=== PATIENT | male | born 1950 | race African-American/Black ===

== ENCOUNTER 2016-11-22 06:34 | Emergency (ER) | payer OTHER, MEDICAID ==
[~2016-11-22] VITALS: Ht 190.5 cm; Wt 140.6 kg
[2016-11-22] VITALS (7 sets, daily range): BP systolic 109–136; BP diastolic 56–76
[~2016-11-22 06:34] MED LIST: BISACODYL5 MG ORAL; CATAPRES0.1 MG ORAL; CEFEPIME-D1 GM/50 ML IVPB; COLACE100 MG ORAL; DUONEB 0.5-3(2.53 ML HHN; FUROSEMIDE40 MG/4 ML IV; HEPARIN SO5000 UNIT2 SUBQ; LASIX20 M1 ORAL; METHYLPREDNISOLONE SODIUM SUCCINATE IV; MIRALAX17 GM ORAL; MOM30 ML ORAL; MORPHINE SU2 MG/1 M1 IV; Morphine Sulfate 4mg/ml Inj ONE; NITROSTAT0.4 M1 SL; PROTONIX IV40 MG IV; TEMAZEPAM15 MG ORAL; TYLENOL325 MG ORAL; UNOBMED; VANCOMYCIN1 GM/2502 IVPB; ZOFRAN 4 MG4 MG/2 ML IV
--- NOTE | 2016-11-22 06:39 | Emergency Room Report ---
History of Present Illness General Source: Patient, EMS Present Illness HPI The patient presents with chest pain. It's across his chest. Radiates somewhat to his shoulders. It is sharp and somewhat pleuritic. He rates it at 8-9/10 at this time. Is given 3 nitroglycerin [facility] nursing facility staff. Also paramedics gave him aspirin and nitroglycerin. It didn't change his pain. He states that he's been having these pains frequently and evaluated and his doctors can't find out what the problem is. The patient suffers from chronic edema and is on a water pill. In addition to that he has a ulcer on his left toe. His tetanus is up-to-date. Denies any nausea vomiting diarrhea. He does have difficulty urinating because he has a large prostate. The patient denies cough, sore throat, fever. Last admitted 2 weeks ago at [facility]. He fell asleep in front of his heater and has blisters on his left hand. Apparently had transfer to [facility] for new LBBB in past - EKG read as pacemaker. Allergies: Coded Allergies: PEANUT (Verified Allergy, Unknown, rash, 04/29/14) Uncoded Allergies: peanut butter (Allergy, Unknown, Rash, 04/29/14) Patient History Past Medical History: see triage record Past Surgical History: CABG, pacemaker Social History Narrative Country [facility] Reviewed Nursing Documentation: PMH: Agreed, PSxH: Agreed Review of Systems All Other Systems: negative except mentioned in HPI Physical Exam Vital Signs Date Time Temp Pulse Resp B/P Pulse Ox O2 Delivery O2 Flow Rate FiO2 11/22/16 06:29 97.0 69 16 119/81 100 Room Air Sp02 EP Interpretation: reviewed, normal General Appearance: well appearing, no apparent distress, GCS 15 Head: normocephalic, atraumatic Eyes: bilateral eye EOMI, bilateral eye PERRL, bilateral eye normal inspection ENT: moist mucus membranes - thirsty Neck: supple Respiratory: chest non-tender, lungs clear, normal breath sounds, other - pacemaker Cardiovascular #1: other - venous disease LE, edema Cardiovascular #2: 2+ radial (R), 2+ dorsalis pedis (R), 2+ dorsalis pedis (L) Gastrointestinal: normal inspection, normal bowel sounds, non tender, no mass, non-distended Musculoskeletal: back normal, gait/station normal, normal range of motion Neurologic: alert, oriented x3, grossly normal Psychiatric: mood/affect normal Skin: other - ulcer L great toe, fung - blisters L hand = 2 Medical Decision Making Diagnostic Impression: Primary Impression: Chest pain Qualified Codes: R07.9 - Chest pain, unspecified Additional Impression: Edema Qualified Codes: R60.0 - Localized edema ER Course Patient presents with substernal chest pain. Will differential includes acute coronary syndrome, acute myocardial infarction, chest wall pain, pleurisy, pneumonia amongst others. Reevaluation history undertaken with EKG, chest x-ray , laboratory. The patient was given aspirin and nitrates in the field without improvement. Nitro paste will be continued here as well as a dose of morphine for pain. EKG shows some ST wave changes septally without stenting. X-ray reveals pacemaker cardiomegaly. Labs are significant for negative troponin. Mild renal insufficiency. Unable to access records from [facility]. The patient is improved here however needs to have observation as his risk factors are high and has an abnormal EKG. He was discussed with Dr. Hurtado. Patient request re-treatment for pain. Morphine repeated. Patient is stable for transfer ALS to [facility] Laboratory Tests Test 11/22/16 06:35 11/22/16 07:47 White Blood Count 6.7 K/UL (4.8-10.8) Red Blood Count 4.15 M/UL (4.70-6.10) L Hemoglobin 13.2 G/DL (14.2-18.0) L Hematocrit 38.7 % (42.0-52.0) L Mean Corpuscular Volume 93 FL (80-99) Mean Corpuscular Hemoglobin 31.8 PG (27.0-31.0) H Mean Corpuscular Hemoglobin Concent 34.2 G/DL (32.0-36.0) Red Cell Distribution Width 11.7 % (11.6-14.8) Platelet Count 135 K/UL (150-450) L Mean Platelet Volume 8.3 FL (6.5-10.1) Neutrophils (%) (Auto) 57.1 % (45.0-75.0) Lymphocytes (%) (Auto) 29.3 % (20.0-45.0) Monocytes (%) (Auto) 8.7 % (1.0-10.0) Eosinophils (%) (Auto) 3.4 % (0.0-3.0) H Basophils (%) (Auto) 1.5 % (0.0-2.0) Prothrombin Time 10.8 SEC (9.30-11.50) Prothrombin Time INR 1.1 (0.9-1.1) PTT 26 SEC (23-33) Sodium Level 140 mEQ/L (135-145) Potassium Level 4.4 mEQ/L (3.4-4.9) Chloride Level 102 mEQ/L (98-107) Carbon Dioxide Level 31 mEQ/L (20-30) H Anion Gap 7 (5-15) Blood Urea Nitrogen 15 mg/dL (7-23) Creatinine 1.4 mg/dL (0.7-1.2) H Estimate Glomerular Filtration Rate > 60 mL/min (>60) Glucose Level 105 mg/dL (74-106) Calcium Level 10.0 mg/dL (8.6-10.2) Total Bilirubin 0.2 mg/dL (0.0-1.2) Aspartate Amino Transferase (AST) 20 U/L (5-40) Alanine Aminotransferase (ALT) 17 U/L (3-41) Alkaline Phosphatase 81 U/L (40-129) Total Creatine Kinase 362 U/L (38-174) H Troponin I < 0.30 ng/mL (<=0.30) Pro-B-Type Natriuretic Peptide 289 pg/mL (0-125) H Total Protein 6.9 g/dL (6.6-8.7) Albumin 3.7 g/dL (3.5-5.2) Globulin 3.2 g/dL Albumin/Globulin Ratio 1.1 (1.0-2.7) Urine Color Pale yellow Urine Appearance Clear Urine pH 7 (4.5-8.0) Urine Specific [place] 1.005 (1.005-1.035) Urine Protein Negative (NEGATIVE) Urine Glucose (UA) Negative (NEGATIVE) Urine Ketones Negative (NEGATIVE) Urine Occult Blood Negative (NEGATIVE) Urine Nitrite Negative (NEGATIVE) Urine Bilirubin Negative (NEGATIVE) Urine Urobilinogen 4 MG/DL (0.0-1.0) H Urine Leukocyte Esterase Negative (NEGATIVE) Urine Opiates Screen Positive (NEGATIVE) H Urine Barbiturates Screen Negative (NEGATIVE) Phencyclidine (PCP) Screen Negative (NEGATIVE) Urine Amphetamines Screen Negative (NEGATIVE) Urine Benzodiazepines Screen Negative (NEGATIVE) Urine Cocaine Screen Negative (NEGATIVE) Urine Marijuana (THC) Screen Negative (NEGATIVE) EKG Diagnostic Results Rate: normal Rhythm: NSR ST Segments: other - St changes septally Rhythm Strip Diag. Results EP Interpretation: yes Rhythm: NSR, no PVC's, no ectopy Chest X-Ray Diagnostic Results EP Interpretation: Yes Findings: no consolidation, no effusion, no pneumothorax, other - cardimegally , pacer Number of Views: 1 Last Vital Signs Date Time Temp Pulse Resp B/P Pulse Ox O2 Delivery O2 Flow Rate FiO2 11/22/16 12:17 97.9 60 12 109/56 99 Room Air Status: improved Disposition: XFER SHT-TRM HOSP Condition: Serious - but stable for transfer Parvez Madera M.D. Nov 22, 2016 06:39
[2016-11-22] MEDS ORDERED: Morphine Sulfate 4mg/ml Inj IVP ONE ×3 (06:45→12:30)
[2016-11-22] MEDS ORDERED: Nitroglycerin 2% oint pkt TOPIC ONE (06:45)
[2016-11-22] MEDS ORDERED: GABAPENTIN300 MG ORAL (06:58)
[2016-11-22] MEDS ORDERED: TYLENOL EXTRA500 MG ORAL (06:58)
[2016-11-22] MEDS ORDERED: HYDROCHLOROTHIA25 MG ORAL (06:58)
[2016-11-22] MEDS ORDERED: FUROSEMIDE40 MG ORAL (06:58)
[2016-11-22] MEDS ORDERED: NEXIUM40 MG ORAL (06:58)
[2016-11-22] MEDS ORDERED: PLAVIX75 MG ORAL (06:58)
[2016-11-22] MEDS ORDERED: BACTRIM DS TAB1 EAC1 ORAL (06:58)
[2016-11-22] MEDS ORDERED: XARELTO20 MG ORAL (07:06)
[2016-11-22] MEDS ORDERED: HYDROCODON-ACE1 EA15 ORAL (07:06)
[2016-11-22] MEDS ORDERED: TAMSULOSIN HCL0.4 MG ORAL (07:06)
[2016-11-22] MEDS ORDERED: LOSARTAN POTAS100 MG ORAL (07:06)
[2016-11-22] MEDS ORDERED: LACTULOSE20 GM/301 ORAL (07:06)
[2016-11-22] MEDS ORDERED: METOPROLOL SUCC25 MG ORAL (07:06)
[2016-11-22] MEDS ORDERED: CEPHALEXIN500 MG ORAL (07:06)
[2016-11-22] MEDS ORDERED: VITAMIN D1000 UNI1 ORAL (07:06)
[2016-11-22] MEDS ORDERED: LISINOPRIL2.5 MG ORAL (07:06)
[2016-11-22] MEDS ORDERED: ISOSORBIDE MONO30 M1 PO (07:06)
[2016-11-22] MEDS ORDERED: IBUPROFEN400 MG ORAL (07:06)
[2016-11-22] MEDS ORDERED: NITROGLYCERIN0.4 MG SL (07:06)
[2016-11-22 07:08] LABS: INR 1.1 (0.9-1.1); PROTHROMBIN TIME 10.8 SEC (9.30-11.50)
[2016-11-22 07:09] LABS: BASOPHILS % (AUTO) 1.5 % (0.0-2.0); EOSINOPHILS % (AUTO) 3.4 % (0.0-3.0); LYMPHOCYTES % (AUTO) 29.3 % (20.0-45.0); MEAN CORPUSCULAR HEMOGLOBIN 31.8 PG (27.0-31.0); MEAN CORPUSCULAR HGB CONC 34.2 G/DL (32.0-36.0); MEAN CORPUSCULAR VOLUME 93 FL (80-99); MEAN PLATELET VOLUME 8.3 FL (6.5-10.1); MONOCYTES % (AUTO) 8.7 % (1.0-10.0); NEUTROPHILS % (AUTO) 57.1 % (45.0-75.0); PLATELET COUNT 135 K/UL (150-450); RED BLOOD COUNT 4.15 M/UL (4.70-6.10); RED CELL DISTRIBUTION WIDTH 11.7 % (11.6-14.8); WHITE BLOOD COUNT 6.7 K/UL (4.8-10.8)
[2016-11-22 07:12] LABS: ALANINE AMINOTRANSFERASE 17 U/L (3-41); ALBUMIN/GLOBULIN RATIO 1.1 (1.0-2.7); ANION GAP 7 (5-15); ASPARTATE AMINO TRANSFERASE 20 U/L (5-40); CARBON DIOXIDE 31 mEQ/L (20-30); CHLORIDE 102 mEQ/L (98-107); CREATININE 1.4 mg/dL (0.7-1.2); GLOMERULAR FILTRATION RATE > 60 mL/min (>60); HEMOLYSIS 7; POTASSIUM 4.4 mEQ/L (3.4-4.9); SODIUM 140 mEQ/L (135-145); TOTAL PROTEIN 6.9 g/dL (6.6-8.7)
[2016-11-22 07:13] LABS: TROPONIN I < 0.30 ng/mL (<=0.30)
[2016-11-22 08:12] LABS: APPEARANCE,URINE CLEAR; KETONES,URINE NEGATIVE (NEGATIVE); LEUKOCYTE ESTERASE ,URINE NEGATIVE (NEGATIVE); NITRITE,URINE NEGATIVE (NEGATIVE); PH,URINE 7 (4.5-8.0); PROTEIN,URINE NEGATIVE (NEGATIVE); UROBILINOGEN,URINE 4 MG/DL (0.0-1.0)
--- NOTE | 2016-11-23 08:59 | Diagnostic Imaging Report ---
Indication: CP Technique: XRAY CHEST 1 V Comparison:11/09/2015 Findings: Sternal wires and pacemaker are again identified. The cardiac mediastinal silhouette is unchanged. The heart is at the upper limits of normal. Lungs are clear. No pleural fluid. The bones are unchanged. Impression: Heart the upper limits of normal. Pacemaker. Evidence previous surgery. No acute abnormality.
--- NOTE | 2016-11-23 19:50 | Cardiology Report ---
APPROVED REPORT EKG Measurement Heart [id number] Sinus rhythm with 1st degree AV block Nonspecific T wave abnormality Abnormal ECG
== END 2016-11-22 12:17 | disposition short-term general hospital (02) ==
LOC: EDBD 06:34 → EMR 07:18
DX: R07.89 Other chest pain (principal); I44.7 Left bundle-branch block, unspecified; R60.0 Localized edema; I51.7 Cardiomegaly; Z95.0 Presence of cardiac pacemaker; Z95.1 Presence of aortocoronary bypass graft; L97.529 Non-pressure chronic ulcer of other part of left foot with unspecified severity; T23.202A Burn of second degree of left hand, unspecified site, initial encounter; X08.8XXA Exposure to other specified smoke, fire and flames, initial encounter; Y92.9 Unspecified place or not applicable; R94.31 Abnormal electrocardiogram [ECG] [EKG]
CPT/HCPCS: 36415; 71010; 80053; 80300; 81003; 82550; 83880; 84484; 85025; 85610; 85730; 93005; 96374; 96375; 99285; J2270

== ENCOUNTER 2016-11-28 05:37 | Inpatient (IN) | payer OTHER, MEDICAID ==
[~2016-11-28] VITALS: Ht 190.5 cm; Wt 138.3 kg
[2016-11-28] VITALS (10 sets, daily range): BP systolic 92–129; BP diastolic 45–72
[~2016-11-28 05:37] MED LIST changes: +BACTRIM DS TAB1 EAC1 ORAL; +CEPHALEXIN500 MG ORAL; +FUROSEMIDE40 MG ORAL; +GABAPENTIN300 MG ORAL; +HYDROCHLOROTHIA25 MG ORAL; +HYDROCODON-ACE1 EA15 ORAL; +IBUPROFEN400 MG ORAL; +ISOSORBIDE MONO30 M1 PO; +LACTULOSE20 GM/301 ORAL; +LISINOPRIL2.5 MG ORAL; +LOSARTAN POTAS100 MG ORAL; +METOPROLOL SUCC25 MG ORAL; -Morphine Sulfate 4mg/ml Inj ONE; +NEXIUM40 MG ORAL; +NITROGLYCERIN0.4 MG SL; +PLAVIX75 MG ORAL; +TAMSULOSIN HCL0.4 MG ORAL; +TYLENOL EXTRA500 MG ORAL; +VITAMIN D1000 UNI1 ORAL; +XARELTO20 MG ORAL
[2016-11-28] MEDS ORDERED: Morphine Sulfate 4mg/ml Inj IVP ONE ×3 (05:45→21:45)
[2016-11-28] MEDS ORDERED: Nitroglycerin 2% oint pkt TOPIC ONE (05:45)
[2016-11-28 06:22] LABS: INR 1.2 (0.9-1.1); PROTHROMBIN TIME 12.4 SEC (9.30-11.50)
[2016-11-28 06:24] LABS: ALANINE AMINOTRANSFERASE 25 U/L (3-41); ALBUMIN/GLOBULIN RATIO 1.2 (1.0-2.7); ANION GAP 14 (5-15); ASPARTATE AMINO TRANSFERASE 21 U/L (5-40); CALCIUM 10.1 mg/dL (8.6-10.2); CARBON DIOXIDE 26 mEQ/L (20-30); CHLORIDE 96 mEQ/L (98-107); CREATININE 1.6 mg/dL (0.7-1.2); HEMOLYSIS 6; POTASSIUM 4.4 mEQ/L (3.4-4.9); SODIUM 136 mEQ/L (135-145)
[2016-11-28 06:25] LABS: TROPONIN I < 0.30 ng/mL (<=0.30)
[2016-11-28 06:34] LABS: BASOPHILS % (AUTO) 1.5 % (0.0-2.0); EOSINOPHILS % (AUTO) 5.2 % (0.0-3.0); LYMPHOCYTES % (AUTO) 34.3 % (20.0-45.0); MEAN CORPUSCULAR HEMOGLOBIN 32.5 PG (27.0-31.0); MEAN CORPUSCULAR HGB CONC 34.2 G/DL (32.0-36.0); MEAN CORPUSCULAR VOLUME 95 FL (80-99); MEAN PLATELET VOLUME 8.9 FL (6.5-10.1); NEUTROPHILS % (AUTO) 51.1 % (45.0-75.0); PLATELET COUNT 157 K/UL (150-450); RED BLOOD COUNT 4.39 M/UL (4.70-6.10); RED CELL DISTRIBUTION WIDTH 12.2 % (11.6-14.8); WHITE BLOOD COUNT 6.8 K/UL (4.8-10.8)
--- NOTE | 2016-11-28 06:34 | Emergency Room Report ---
History of Present Illness General Chief Complaint: Chest Pain Source: Patient, EMS Present Illness HPI The patient presents with substernal chest pressure that woke him up from sleep. [facility] This didn' t help the pain. The patient states this feels like his heart pain. He also is on Xarelto for a recent blood clot. He denies any fevers or productive cough , hemoptysis. He status post coronary artery bypass graft surgery. The patient was admitted to the hospital a few weeks ago (not [facility]). He states no exercise treadmill or imaging studies were done for his heart. Our records show he was transferred. The patient denies any nausea vomiting diarrhea. Also denies dysuria or hematuria. There is no hemoptysis. There is no bleeding. He has venous disease in his legs. He states that blood clot in the back of his left thigh. He denies any localizing weakness. Pain is 10/10, pressure, radiates to shoulder and back, constant at this time, not pleuritic. Allergies: Coded Allergies: PEANUT (Verified Allergy, Unknown, rash, 04/29/14) Uncoded Allergies: PEANUT BUTTER (Allergy, Unknown, 11/28/16) peanut butter (Allergy, Unknown, Rash, 04/29/14) Patient History Past Medical History: see triage record Past Surgical History: CABG, pacemaker Social History: Reports: smoking - former Social History Narrative [facility] for strokes Reviewed Nursing Documentation: PMH: Agreed, PSxH: Agreed Nursing Documentation-PMH Hx Cardiac Problems: Yes - triple bypass 2010 Hx Hypertension: Yes Hx Pacemaker: Yes Hx Diabetes: Yes Hx Cancer: No Hx Neurological Problems: Yes Hx Cerebrovascular Accident: Yes - 4 strokes last CVA 08/2015 Review of Systems All Other Systems: negative except mentioned in HPI Physical Exam Vital Signs Date Time Temp Pulse Resp B/P Pulse Ox O2 Delivery O2 Flow Rate FiO2 11/28/16 05:29 97.0 86 12 125/50 100 Room Air Sp02 EP Interpretation: reviewed, normal General Appearance: well appearing, no apparent distress, GCS 15 Head: normocephalic Eyes: bilateral eye normal inspection ENT: moist mucus membranes Neck: supple Respiratory: lungs clear, normal breath sounds, other - pacemaker L Cardiovascular #1: regular rate, rhythm, edema Cardiovascular #2: 2+ radial (R) Gastrointestinal: normal inspection, normal bowel sounds, non tender, no mass, non-distended, overweight Musculoskeletal: back normal, gait/station normal, normal range of motion, no calf tenderness Neurologic: alert, oriented x3, motor strength/tone normal, DTRs symmetric, sensory intact Psychiatric: depressed affect Reflexes: 2+ knee (R), 2+ knee (L) Skin: normal inspection, warm/dry, other - venous disease Medical Decision Making Diagnostic Impression: Primary Impression: ACS (acute coronary syndrome) Additional Impression: CHF (congestive heart failure) Qualified Codes: I50.43 - Acute on chronic combined systolic (congestive) and diastolic (congestive) heart failure ER Course The patient presents with substernal chest pressure. He's had a complex history with cardiovascular disease in the past. In addition he is on Lashon for blood clot in his leg. Differential includes acute myocardial infarction, acute coronary syndrome, I am embolus, congestive heart failure amongst others. Nitrates didn't seem to help the patient. He cannot take aspirin because he is on Lashon. Emergent evaluation is undertaken with EKG, labs chest x-ray. The patient will be treated with nitrates on his chest and also IV morphine. The patient is somewhat improved. Lasix given for his congestive heart failure. Initial labs are negative troponin. Patient is somewhat improved but needs observation for acute coronary syndrome and congestive heart failure. Admit tele Dr. Quiñones. Laboratory Tests Test 11/28/16 05:45 11/28/16 06:57 White Blood Count 6.8 K/UL (4.8-10.8) Red Blood Count 4.39 M/UL (4.70-6.10) L Hemoglobin 14.3 G/DL (14.2-18.0) Hematocrit 41.7 % (42.0-52.0) L Mean Corpuscular Volume 95 FL (80-99) Mean Corpuscular Hemoglobin 32.5 PG (27.0-31.0) H Mean Corpuscular Hemoglobin Concent 34.2 G/DL (32.0-36.0) Red Cell Distribution Width 12.2 % (11.6-14.8) Platelet Count 157 K/UL (150-450) Mean Platelet Volume 8.9 FL (6.5-10.1) Neutrophils (%) (Auto) 51.1 % (45.0-75.0) Lymphocytes (%) (Auto) 34.3 % (20.0-45.0) Monocytes (%) (Auto) 8.0 % (1.0-10.0) Eosinophils (%) (Auto) 5.2 % (0.0-3.0) H Basophils (%) (Auto) 1.5 % (0.0-2.0) Prothrombin Time 12.4 SEC (9.30-11.50) H Prothrombin Time INR 1.2 (0.9-1.1) H PTT 30 SEC (23-33) Sodium Level 136 mEQ/L (135-145) Potassium Level 4.4 mEQ/L (3.4-4.9) Chloride Level 96 mEQ/L (98-107) L Carbon Dioxide Level 26 mEQ/L (20-30) Anion Gap 14 (5-15) Blood Urea Nitrogen 21 mg/dL (7-23) Creatinine 1.6 mg/dL (0.7-1.2) H Estimate Glomerular Filtration Rate 53.0 mL/min (>60) Glucose Level 104 mg/dL (74-106) Calcium Level 10.1 mg/dL (8.6-10.2) Total Bilirubin < 0.2 mg/dL (0.0-1.2) Aspartate Amino Transferase (AST) 21 U/L (5-40) Alanine Aminotransferase (ALT) 25 U/L (3-41) Alkaline Phosphatase 92 U/L (40-129) Total Creatine Kinase 238 U/L (38-174) H Troponin I < 0.30 ng/mL (<=0.30) Pro-B-Type Natriuretic Peptide 128 pg/mL (0-125) H Total Protein 8.0 g/dL (6.6-8.7) Albumin 4.5 g/dL (3.5-5.2) Globulin 3.5 g/dL Albumin/Globulin Ratio 1.2 (1.0-2.7) Urine Color Pale yellow Urine Appearance Clear Urine pH 5 (4.5-8.0) Urine Specific [place] 1.010 (1.005-1.035) Urine Protein Negative (NEGATIVE) Urine Glucose (UA) Negative (NEGATIVE) Urine Ketones Negative (NEGATIVE) Urine Occult Blood Negative (NEGATIVE) Urine Nitrite Negative (NEGATIVE) Urine Bilirubin Negative (NEGATIVE) Urine Urobilinogen Normal MG/DL (0.0-1.0) Urine Leukocyte Esterase Negative (NEGATIVE) EKG Diagnostic Results Rate: normal Rhythm: NSR ST Segments: no acute changes - biphasic T waves septally Rhythm Strip Diag. Results EP Interpretation: yes Rhythm: NSR, no PVC's, no ectopy Chest X-Ray Diagnostic Results EP Interpretation: Yes Findings: no consolidation, no pneumothorax, other - pacer, clips and chf Number of Views: 1 Last Vital Signs Date Time Temp Pulse Resp B/P Pulse Ox O2 Delivery O2 Flow Rate FiO2 11/28/16 08:19 97.0 11/28/16 07:56 96 12 121/62 99 Room Air Status: improved Disposition: ADMITTED INPATIENT Condition: Serious Parvez Madera M.D. Nov 28, 2016 06:34
[2016-11-28 07:12] LABS: APPEARANCE,URINE CLEAR; KETONES,URINE NEGATIVE (NEGATIVE); LEUKOCYTE ESTERASE ,URINE NEGATIVE (NEGATIVE); NITRITE,URINE NEGATIVE (NEGATIVE); PH,URINE 5 (4.5-8.0); PROTEIN,URINE NEGATIVE (NEGATIVE); UROBILINOGEN,URINE NORMAL MG/DL (0.0-1.0)
--- NOTE | 2016-11-28 11:39 | Diagnostic Imaging Report ---
Indication: Chest Pain Comparison: 11/22/16 A single view chest radiograph was obtained. Findings: No definite infiltrate or pulmonary vascular congestion identified. The heart is normal in size. There is a pacemaker and sternotomy noted.. The aorta is mildly enlarged consistent with atherosclerotic vascular disease. The bones are osteopenic. Impression: No acute disease
[2016-11-28] MEDS ORDERED: Morphine Sulfate 2mg/ml Inj IVP ONE (13:45)
--- NOTE | 2016-11-28 15:33 | Cardiac Electrophysiology PN ---
Subjective Subjective [id number] Objective Last 24 Hour Vital Signs Date Time Temp Pulse Resp B/P Pulse Ox O2 Delivery O2 Flow Rate FiO2 11/28/16 15:04 97.0 11/28/16 13:28 97.0 66 18 111/45 96 Room Air 11/28/16 12:32 96 12 Room Air 11/28/16 12:31 96 12 Room Air 11/28/16 12:30 97.0 96 12 121/62 99 Room Air 11/28/16 08:19 97.0 11/28/16 07:56 97.0 96 12 121/62 99 Room Air 11/28/16 06:23 97.0 11/28/16 05:53 121/62 11/28/16 05:40 91 12 Room Air 11/28/16 05:33 97.0 91 12 125/50 100 Room Air 11/28/16 05:29 97.0 86 12 125/50 100 Room Air Laboratory Tests Test 11/28/16 05:45 11/28/16 06:57 White Blood Count 6.8 K/UL (4.8-10.8) Red Blood Count 4.39 M/UL (4.70-6.10) L Hemoglobin 14.3 G/DL (14.2-18.0) Hematocrit 41.7 % (42.0-52.0) L Mean Corpuscular Volume 95 FL (80-99) Mean Corpuscular Hemoglobin 32.5 PG (27.0-31.0) H Mean Corpuscular Hemoglobin Concent 34.2 G/DL (32.0-36.0) Red Cell Distribution Width 12.2 % (11.6-14.8) Platelet Count 157 K/UL (150-450) Mean Platelet Volume 8.9 FL (6.5-10.1) Neutrophils (%) (Auto) 51.1 % (45.0-75.0) Lymphocytes (%) (Auto) 34.3 % (20.0-45.0) Monocytes (%) (Auto) 8.0 % (1.0-10.0) Eosinophils (%) (Auto) 5.2 % (0.0-3.0) H Basophils (%) (Auto) 1.5 % (0.0-2.0) Prothrombin Time 12.4 SEC (9.30-11.50) H Prothromb Time International Ratio 1.2 (0.9-1.1) H Activated Partial Thromboplast Time 30 SEC (23-33) Sodium Level 136 mEQ/L (135-145) Potassium Level 4.4 mEQ/L (3.4-4.9) Chloride Level 96 mEQ/L (98-107) L Carbon Dioxide Level 26 mEQ/L (20-30) Anion Gap 14 (5-15) Blood Urea Nitrogen 21 mg/dL (7-23) Creatinine 1.6 mg/dL (0.7-1.2) H Estimat Glomerular Filtration Rate 53.0 mL/min (>60) Glucose Level 104 mg/dL (74-106) Calcium Level 10.1 mg/dL (8.6-10.2) Total Bilirubin < 0.2 mg/dL (0.0-1.2) Aspartate Amino Transf (AST/SGOT) 21 U/L (5-40) Alanine Aminotransferase (ALT/SGPT) 25 U/L (3-41) Alkaline Phosphatase 92 U/L (40-129) Total Creatine Kinase 238 U/L (38-174) H Troponin I < 0.30 ng/mL (<=0.30) Pro-B-Type Natriuretic Peptide 128 pg/mL (0-125) H Total Protein 8.0 g/dL (6.6-8.7) Albumin 4.5 g/dL (3.5-5.2) Globulin 3.5 g/dL Albumin/Globulin Ratio 1.2 (1.0-2.7) Urine Color Pale yellow Urine Appearance Clear Urine pH 5 (4.5-8.0) Urine Specific [place] 1.010 (1.005-1.035) Urine Protein Negative (NEGATIVE) Urine Glucose (UA) Negative (NEGATIVE) Urine Ketones Negative (NEGATIVE) Urine Occult Blood Negative (NEGATIVE) Urine Nitrite Negative (NEGATIVE) Urine Bilirubin Negative (NEGATIVE) Urine Urobilinogen Normal MG/DL (0.0-1.0) Urine Leukocyte Esterase Negative (NEGATIVE) REGINA GODINEZ Nov 28, 2016 15:33
[2016-11-28] MEDS ORDERED: Losartan 50mg tab ORAL ONE (15:45)
[2016-11-28] MEDS ORDERED: Imdur 30mg tab ORAL ONE (16:00)
[2016-11-28] MEDS: Metoprolol 25mg tab ORAL SCH (21:00)
--- NOTE | 2016-11-28 21:58 | History and Physical Report ---
DATE OF ADMISSION: 11/28/2016 HISTORY OF PRESENT ILLNESS: The patient is a 66-year-old male, who has past medical history of coronary artery disease, cardiac arrhythmia, status post pacemaker placement, hypertension, peripheral vascular disease, admitted from the [place] [facility] in to the emergency room. He denies any vomiting or diarrhea. He has a chest pain associated with short of breath. Chest pain is pressured and started last night and has been going on. The patient has been given morphine in the ER. His pain is better. The patient is still feeling generalized weakness. No fever. No chills. PAST MEDICAL HISTORY: Significant for cardiac arrhythmia status post placement of pacemaker, hypertension, and obesity. ALLERGIES: NKA. FAMILY HISTORY: Noncontributory. SOCIAL HISTORY: He lives in [facility]. He mostly walks with a walker. REVIEW OF SYSTEMS: Generalized weakness, tired, fatigue, recurrent chest pain, and feeling mild to moderate short of breath on exertion. PHYSICAL EXAMINATION: VITAL SIGNS: Blood pressure 140/70, pulse 60, and respirations 18. SKIN: Good skin turgor. HEENT: AT/NC. EOMI. PERRLA. NECK: Supple. No JVD. CHEST: Bilaterally few crackles. CARDIOVASCULAR: Regular rhythm. No gallop. No murmur. ABDOMEN: Soft. Positive bowel sounds. Nontender. EXTREMITIES: He had multiple healed wound and pedal pulses. GENITOURINARY: Deferred. LABORATORY DATA: Troponins are negative. EKG is normal sinus rhythm. ASSESSMENT: 1. Acute coronary syndrome. 2. Hypertension. 3. Peripheral vascular disease. 4. Cardiac arrhythmia status post pacemaker placement. PLAN: We will admit on telemetry bed. We will start aspirin and beta-penny. Consider cardiology consult. Continue home medications. Luis Daniel Quiñones M.D. DR: ADELINA JOB#: [id number] CC:
[2016-11-29] VITALS (10 sets, daily range): BP systolic 94–131; BP diastolic 49–89
--- NOTE | 2016-11-29 00:58 | Consultation ---
DATE OF CONSULTATION: CARDIOLOGY CONSULTATION CONSULTING PHYSICIAN: Ronal Lynn M.D. REFERRING PHYSICIAN: Luis Daniel Quiñones M.D. REASON FOR CONSULTATION: Management of hypertension, congestive heart failure, as well as the patient's pacemaker. HISTORY OF PRESENT ILLNESS: The patient is a 66-year-old gentleman with history of hypertension, coronary artery disease, history of coronary artery bypass graft in the year 2010 at [facility] as well as history of pacemaker implantation in the past and pacemaker generator exchange with [employer] pacemaker three years ago. The patient is followed by Dr. Chris Hickey at [facility]. The patient states that he was also at [facility] about a month ago and had a nuclear stress test that was reportedly negative. The patient came back to the emergency room again with recurrent chest pain. EKG showed sinus rhythm with first-degree AV block, voltage criteria for left ventricular hypertrophy, and nonspecific T-wave abnormalities. Cardiology consultation was obtained for further evaluation. At the time of my evaluation, the patient is still in the emergency room and still complains of off and on chest pain. REVIEW OF SYSTEMS: Review of systems was thoroughly performed and was negative other what was mentioned in the history of present illness. PAST MEDICAL HISTORY: 1. Hypertension. 2. Coronary artery disease with coronary artery bypass graft. 3. History of permanent pacemaker implantation with [employer] pacemaker. FAMILY HISTORY: Noncontributory. SOCIAL HISTORY: He lives at home. Does not smoke or drink alcohol. Of note, the patient was also seen at [facility] on 11/23/2016 at [facility]. PHYSICAL EXAMINATION: VITAL SIGNS: Show blood pressure of 111/45, pulse 60, respirations 18, and he is afebrile. HEAD AND NECK: Shows no JVD or carotid bruits. LUNGS: Clear. CARDIOVASCULAR: Shows regular S1 and S2 with no gallop or murmur. The pacemaker is in the left subclavian area. ABDOMEN: Soft. EXTREMITIES: Bilateral 2+ pitting edema. LABORATORY AND DIAGNOSTIC DATA: EKG as mentioned above. Labs show a white count of 6.8, hemoglobin 14.7, hematocrit 41.7, and platelet count 157,000. Sodium 132, potassium 4.4, BUN of 21, and creatinine 1.6. Troponin is negative and BNP is 128. ASSESSMENT AND PLAN: 1. Chest pain. The patient's troponin is negative. We will completely rule out myocardial infarction protocol. The EKG did not show any significant ischemic changes. We will also get an echocardiogram. We will try to get the report of nuclear stress test for [facility] as well as [facility]. We may need to repeat the stress test on Wednesday. 2. History of coronary artery bypass graft. Resume aspirin, Plavix, and Imdur. 3. Status post [employer] pacemaker, was recently interrogated. was normal function. 4. History of bilateral lower extremity edema. to start the patient on intravenous Lasix. Thank you very much, Dr. Quiñones, for allowing me to participate in the care of this patient. Please do not hesitate to contact me if you have any questions regarding my evaluation. Ronal Lynn M.D. DR: TALAT JOB#: [id number] CC:
[2016-11-29] MEDS ORDERED: Acetaminophen 500mg (ES) tab ORAL ONE (03:30)
[2016-11-29 07:32] LABS: BASOPHILS % (AUTO) 1.5 % (0.0-2.0); EOSINOPHILS % (AUTO) 3.6 % (0.0-3.0); LYMPHOCYTES % (AUTO) 31.1 % (20.0-45.0); MEAN CORPUSCULAR HEMOGLOBIN 31.8 PG (27.0-31.0); MEAN CORPUSCULAR HGB CONC 33.8 G/DL (32.0-36.0); MEAN CORPUSCULAR VOLUME 94 FL (80-99); MEAN PLATELET VOLUME 8.1 FL (6.5-10.1); MONOCYTES % (AUTO) 10.7 % (1.0-10.0); NEUTROPHILS % (AUTO) 53.1 % (45.0-75.0); PLATELET COUNT 125 K/UL (150-450); RED BLOOD COUNT 4.19 M/UL (4.70-6.10); WHITE BLOOD COUNT 7.1 K/UL (4.8-10.8)
[2016-11-29 07:48] LABS: CALCIUM 9.6 mg/dL (8.6-10.2); CREATININE 1.6 mg/dL (0.7-1.2); POTASSIUM 4.8 mEQ/L (3.4-4.9); TROPONIN I < 0.30 ng/mL (<=0.30)
[2016-11-29 07:58] LABS: CKMB 4.4 ng/mL (< 6.7)
[2016-11-29] MEDS ORDERED: DiphenhydrAMINE 50mg/ml Inj IVP ONE (09:15)
[2016-11-29] MEDS ORDERED: Morphine Sulfate 4mg/ml Inj IVP ONE (09:15)
[2016-11-29] MEDS: Metoprolol 25mg tab ORAL SCH ×2 (09:29→21:00)
[2016-11-29] MEDS ORDERED: VITAMIN C500 M1 ORAL (18:52)
[2016-11-30] VITALS: BP 106/60
[2016-11-30 04:00] VITALS: BP 110/72
[2016-11-30] MEDS: Morphine Sulfate 4mg/ml Inj IVP PRN ×2 (04:23→11:23)
[2016-11-30 08:04] VITALS: BP 102/76
[2016-11-30] MEDS: Metoprolol 25mg tab ORAL SCH ×2 (08:49→22:16)
[2016-11-30] MEDS: Aspirin Baby 81mg ORAL SCH (08:52)
[2016-11-30 11:30] VITALS: BP 119/74
[2016-11-30] MEDS ORDERED: Adenosine Inj IVP ONE (12:30)
--- NOTE | 2016-11-30 15:13 | Diagnostic Imaging Report ---
Indications: Chest pain Technique: Single day single isotope protocol utilized. Initially, resting images obtained using IV administration 10.2 millicuries 99M technetium Myoview. Subsequently, patient underwent adenosine stress testing. See cardiology report for details. During adenosine infusion, IV administration 32.8 mCi 99 M technetium Myoview. SPECT and planar images obtained. SPECT images gated to 8 phases of the cardiac cycle were also obtained, and reformatted into cine images for evaluation of ejection fraction. Comparison: 05/03/2014 Findings: Per cardiology report, patient experienced flushing and chest pain. Per cardiology report, resting EKG demonstrates AV paced rhythm. Resting images.. Calculated post stress ejection fraction 55% Comparison prior study, the inferior wall perfusion defects is the same on the prior post stress images. However, the apparent reperfusion on the resting images was not evident previously Impression: Nondiagnostic clinical response to pharmacologic stress, per cardiology report Nondiagnostic electrocardiographic response to pharmacologic stress, per cardiology report Equivocal imaging findings. Current imaging findings are suggestive of posterior wall ischemia, whereas on the prior images the same post stress perfusion defect was present but unchanged on the resting images, more suggestive of infarct. Findings therefore could represent ischemia, infarct, or, given the patient's large body habitus, artifact secondary to soft tissue attenuation. Calculated post stress ejection fraction 55%
[2016-11-30 16:00] VITALS: BP 119/75
--- NOTE | 2016-11-30 16:17 | Cardiac Electrophysiology PN ---
Assessment/Plan Status Narrative Equivocal imaging findings. Current imaging findings are suggestive of posterior wall ischemia, whereas on the prior images the same post stress perfusion defect was present but unchanged on the resting images, more suggestive of infarct. Findings therefore could represent ischemia, infarct, or, given the patient's large body habitus, artifact secondary to soft tissue attenuation. Calculated post stress ejection fraction 55% Assessment/Plan 1. Chest pain. Ruled out myocardial infarction protocol. The EKG intermittent V pacing.Echocardiogram EF 65%. Had stress test today that did not show clear ischemia. 2. History of coronary artery bypass graft. Continue aspirin, Plavix, and Lopressor 25 bid 3. Status post [employer] pacemaker, was recently interrogated and showed normal function. 4. Severe bilateral lower extremity edema. Continue intravenous Lasix. SANTO RN Subjective Subjective Mostly V pacing. Had nuclear stress test today. Still Bilateral LE edema. Objective Last 24 Hour Vital Signs Date Time Temp Pulse Resp B/P Pulse Ox O2 Delivery O2 Flow Rate FiO2 11/30/16 11:37 72 11/30/16 11:30 97.5 82 20 119/74 94 Room Air 11/30/16 08:49 79 102/76 11/30/16 08:04 97.7 79 20 102/76 96 Room Air 11/30/16 08:01 86 11/30/16 04:00 97.9 86 20 110/72 98 Room Air 11/30/16 04:00 80 11/30/16 00:00 65 11/30/16 00:00 97.7 67 19 106/60 98 Room Air 11/29/16 21:00 78 100/66 11/29/16 20:00 101 11/29/16 20:00 97.9 78 18 100/66 98 Room Air 11/29/16 17:41 69 18 112/71 96 Room Air 11/29/16 16:51 97.6 61 13 105/61 100 Room Air 11/29/16 16:30 97.6 61 13 105/61 100 Room Air Intake and Output 11/29/16 11/30/16 19:00 07:00 Intake Total 240 ml Balance 240 ml Intake Oral 240 ml # Voids 4 Microbiology Date/Time Source Procedure Growth Status 11/28/16 08:00 Nasal Nares MRSA Culture - Final NO METHICILLIN RESISTANT STAPH AUREUS... Complete 11/28/16 07:00 Rectum VRE Culture - Final Enterococcus Faecium - Vre Complete Objective HEAD AND NECK: Shows no JVD or carotid bruits. LUNGS: Clear. CARDIOVASCULAR: Shows regular S1 and S2 with no gallop or murmur.The pacemaker is in the left subclavian area. ABDOMEN: Soft. EXTREMITIES: Bilateral 3+ pitting edema. REGINA GODINEZ Nov 30, 2016 16:17
--- NOTE | 2016-11-30 19:22 | Wound Care Consultation ---
Wound Assessment Wound Assessment : Wound Present on Admission: Yes New Wound: No Status Change of Wound: No Wound Location Body Site Modif: left, other - forearm Wound Type: blister - open blisters Kiersten Test: Does not Kiersten Wound Thickness: Partial Thickness Percent of Wound [place]/Red: 100 Wound Drainage Amount: None Wound Drainage Odor: None/Absent Tissue Surrounding Wound: Intact Wound General Appearance: Reddened Wound Comment #1 Two open blisters on left forearm caused by burn according to pt. Recommendation -Cleanse with saline pat dry apply Silvasorb gel to wound bed cover with dry drg daily and PRN soiled/dislodged -Keep clean and dry -Assess and f/u accordingly for any changes TOMMY SALEH RN Nov 30, 2016 19:22
[2016-11-30 20:00] VITALS: BP 121/73
--- NOTE | 2016-11-30 23:58 | Progress Note ---
DATE: 11/30/2016 SUBJECTIVE: The patient is a 66 years old male, who is currently sitting in bed comfortable. His leg edema is also better. The patient underwent a stress test and results are pending. OBJECTIVE: VITAL SIGNS: His current blood pressure is 130/70 and pulse 60. No fever. SKIN: Good skin turgor. HEENT: AT/NC. EOMI. DOMONIQUE. NECK: Supple. No JVD. CHEST: Bilaterally clear. CARDIOVASCULAR: Regular rhythm. ABDOMEN: Soft. EXTREMITIES: No CCE. NEUROLOGICAL: No focal deficits. ASSESSMENT: 1. Acute coronary syndrome. 2. Hypertension. 3. Hyperlipidemia. PLAN: We will currently continue current medical treatment. Waiting for a stress test result. Continue supportive treatment. Follow up the labs. Luis Daniel Quiñones M.D. DR: ROBER JOB#: [id number] CC:
[2016-12-01] VITALS: BP 115/75
[2016-12-01 04:00] VITALS: BP 115/58
--- NOTE | 2016-12-01 08:24 | Cardiology Report ---
APPROVED REPORT EXAM: Two-dimensional and M-mode echocardiogram with Doppler and color Doppler. INDICATION Chest Pain M-Mode DIMENSIONS IVSd0.7 (0.7-1.1cm)Left Atrium (MM)4.0 (1.6-4.0cm) LVDd4.9 (3.5-5.6cm)Aortic Root3.2 (2.0-3.7cm) PWd0.9 (0.7-1.1cm)Aortic Cusp Exc.2.0 (1.5-2.0cm) LVDs3.0 (2.5-4.0cm) PWs1.1 cm Technically difficult study due to poor acoustic windows. Normal left ventricular chamber size, systolic function and wall motion abnormal septal bounce maybe related to pacing . Left ventricular ejection fraction estimated to be 55-60%. No evidence of left ventricular hypertrophy. No evidence of pericardial fat or effusion. Mild bi-atrial enlargement by 2D. Focal aortic valve sclerosis with adequate cusp excursion Thickened mitral valve leaflets with normal excursion. Mild mitral annulus and aortic root calcification. Pulmonic valve not well visualized. Normal tricuspid valve structure. IVC not obtainable. Probable pacemaker wire present in the right side chambers. A color flow and spectral Doppler study was performed and revealed: Trace aortic regurgitation. Trace mitral regurgitation. Left ventricular diastolic dysfunction grade 1. Mild tricuspid regurgitation. Tricuspid systolic velocities suggests peak right ventricular systolic pressure of 23 mmHg Pulmonic regurgitation present.
[2016-12-01] MEDS: Aspirin Baby 81mg ORAL SCH (08:38)
[2016-12-01] MEDS: Metoprolol 25mg tab ORAL SCH (08:38)
[2016-12-01 08:40] LABS: CALCIUM 10.6 mg/dL (8.6-10.2); CREATININE 1.6 mg/dL (0.7-1.2); POTASSIUM 4.8 mEQ/L (3.4-4.9)
[2016-12-01 08:51] VITALS: BP 104/70
--- NOTE | 2016-12-01 11:35 | Cardiology Report ---
APPROVED REPORT EKG Measurement Heart [id number] VT 288P [id number] Sinus rhythm with 1st degree AV block Minimal voltage criteria for LVH, may be normal variant Nonspecific T wave abnormality Abnormal ECG
[2016-12-01 11:42] VITALS: BP 99/57
[2016-12-01] MEDS ORDERED: Lactulose 10gm/15ml UDC ORAL ONE (13:00)
--- NOTE | 2016-12-01 15:27 | Cardiac Electrophysiology PN ---
Assessment/Plan Status Narrative Equivocal imaging findings. Current imaging findings are suggestive of posterior wall ischemia, whereas on the prior images the same post stress perfusion defect was present but unchanged on the resting images, more suggestive of infarct. Findings therefore could represent ischemia, infarct, or, given the patient's large body habitus, artifact secondary to soft tissue attenuation. Calculated post stress ejection fraction 55% Assessment/Plan 1. Chest pain. Ruled out myocardial infarction protocol. The EKG intermittent V pacing.Echocardiogram EF 65%. Stress test did not show clear ischemia. 2. History of coronary artery bypass graft. Continue aspirin, Plavix, and Lopressor 25 bid 3. Status post [employer] pacemaker, was recently interrogated and showed normal function. 4. Severe bilateral lower extremity edema. Continue Lasix. SANTO RN Subjective Subjective Mostly V pacing. Still Bilateral LE edema.Comfortable. Objective Last 24 Hour Vital Signs Date Time Temp Pulse Resp B/P Pulse Ox O2 Delivery O2 Flow Rate FiO2 12/01/16 11:42 97.7 67 20 99/57 100 Room Air 12/01/16 11:41 69 12/01/16 08:51 97.0 60 20 104/70 98 Room Air 12/01/16 08:38 70 115/58 12/01/16 07:37 60 12/01/16 05:05 82 12/01/16 04:00 97.0 20 115/58 97 Room Air 12/01/16 00:00 97.3 76 20 115/75 95 Bi-pap 12/01/16 00:00 66 11/30/16 22:16 68 121/73 11/30/16 20:00 68 11/30/16 20:00 97.5 78 20 121/73 99 Room Air 11/30/16 16:00 68 11/30/16 16:00 97.5 80 20 119/75 95 Room Air Intake and Output 11/30/16 12/01/16 19:00 07:00 Intake Total 490 ml Output Total 250 ml 450 ml Balance 240 ml -450 ml Intake Oral 490 ml Output Urine Total 250 ml 450 ml # Voids 4 3 Laboratory Tests Test 12/01/16 06:46 Sodium Level 139 mEQ/L (135-145) Potassium Level 4.8 mEQ/L (3.4-4.9) Chloride Level 97 mEQ/L (98-107) L Carbon Dioxide Level 28 mEQ/L (20-30) Anion Gap 14 (5-15) Blood Urea Nitrogen 35 mg/dL (7-23) H Creatinine 1.6 mg/dL (0.7-1.2) H Estimat Glomerular Filtration Rate 53.0 mL/min (>60) Glucose Level 97 mg/dL (74-106) Calcium Level 10.6 mg/dL (8.6-10.2) H Pro-B-Type Natriuretic Peptide 51 pg/mL (0-125) Objective HEAD AND NECK: Shows no JVD or carotid bruits. LUNGS: Clear. CARDIOVASCULAR: Shows regular S1 and S2 with no gallop or murmur.The pacemaker is in the left subclavian area. ABDOMEN: Soft. EXTREMITIES: Bilateral 2+ pitting edema. REGINA GODINEZ Dec 01, 2016 15:27
[2016-12-01 16:00] VITALS: BP 114/69
--- NOTE | 2016-12-02 03:09 | Discharge Summary ---
DATE OF ADMISSION: 11/28/2016 DATE OF DISCHARGE: 12/01/2016 HISTORY: This is an elderly 66-year-old, male, who came to the emergency room for having recurrent chest pain and palpitation, mild short of breath and leg edema. The patient underwent a stress test, which was negative. His medications are also unremarkable. His hemoglobin was low. Cardiology consult was obtained. The patient was clinically improved. He is going to contact the long-term. Follow up as outpatient. The patient was recommended to have a 2 g sodium diet as well as activity as tolerated and keeping the legs elevated when he is in the bed. DISCHARGE DIAGNOSES: 1. Acute coronary syndrome. 2. Hypertension. 3. Congestive heart failure. 4. Comorbid obesity. DIET: A 2 g sodium diet. ACTIVITIES: As tolerated. MEDICATIONS: See the list from the hospital. Discussed with Dr. Lynn, as he was taking care of him from cardiology perspective. Luis Daniel Quiñones M.D. DR: ADELINA JOB#: [id number] CC:
== END 2016-12-01 21:15 | DRG 311 ==
LOC: EDBD 05:37 → EMR 06:38 → 2E 07:21 → EDBEDREQ 11-29 16:05
DX: I24.9 Acute ischemic heart disease, unspecified (principal); I50.43 Acute on chronic combined systolic (congestive) and diastolic (congestive) heart failure; I73.9 Peripheral vascular disease, unspecified; Z95.0 Presence of cardiac pacemaker; I25.119 Atherosclerotic heart disease of native coronary artery with unspecified angina pectoris; Z95.1 Presence of aortocoronary bypass graft; I11.0 Hypertensive heart disease with heart failure; E66.01 Morbid (severe) obesity due to excess calories; Z68.38 Body mass index [BMI] 38.0-38.9, adult
CPT/HCPCS: 36415; 71010; 78452; 80048; 80053; 81003; 82550; 82553; 83880; 84484; 85025; 85610; 85730; 87081; 93005; 93017; 93306; J2405

== ENCOUNTER 2016-12-05 18:12 | Emergency (ER) | payer MEDICARE, MEDICAID ==
[~2016-12-05] VITALS: Ht 185.4 cm; Wt 134.7 kg
[~2016-12-05 18:12] MED LIST changes: +VITAMIN C500 M1 ORAL
--- NOTE | 2016-12-05 18:21 | Emergency Room Report ---
History of Present Illness General Chief Complaint: Altered Level of Consciousness Source: EMS (Parvez Madera M.D.) Present Illness HPI Patient is brought in with altered mentation. Does have an argument with staff at the long-term facility when he became unresponsive. Paramedics were summoned and his blood glucose is 100. In addition to that when it dropped his hand he avoids hitting his face. There is no seizure activity was noted. The patient was just admitted to the hospital here for chest pain ruling out cardiac cause. He's been treated there for venous stasis ulcers and pressure ulcer on his toe. Allegedly he does not have access to opiates at this time. And was admitted for his chest pain he required several doses of Dilaudid. He has had 4 strokes in the past. Last 08/2015. The patient is not answering questions at this time. This is my note from 11/27. The patient presents with substernal chest pressure that woke him up from sleep. They gave him nitroglycerin at the long-term facility. This didn' t help the pain. The patient states this feels like his heart pain. He also is on Xarelto for a recent blood clot. He denies any fevers or productive cough , hemoptysis. He status post coronary artery bypass graft surgery. The patient was admitted to the hospital a few weeks ago [place] [facility] He states no exercise treadmill or imaging studies were done for his heart. Our records show he was transferred. The patient denies any nausea vomiting diarrhea. Also denies dysuria or hematuria. There is no hemoptysis. There is no bleeding. He has venous disease in his legs. He states that blood clot in the back of his left thigh. He denies any localizing weakness. Pain is 10/10, pressure, radiates to shoulder and back, constant at this time, not pleuritic. He was discharged on aspirin and plavix. I have no evidence of being on Xarelto at this time. (Parvez Madera M.D.) Allergies: Coded Allergies: PEANUT (Verified Allergy, Unknown, rash, 04/29/14) Uncoded Allergies: PEANUT BUTTER (Allergy, Unknown, 11/28/16) peanut butter (Allergy, Unknown, Rash, 04/29/14) Patient History Limited by: medical condition Past Medical History: see triage record, old chart reviewed Past Surgical History: CABG, pacemaker Social History Narrative SNF Reviewed Nursing Documentation: PMH: Agreed, PSxH: Agreed (Parvez Madera M.D.) Nursing Documentation-PMH Hx Cardiac Problems: Yes - Triple bypass 2010 Hx Hypertension: Yes Hx Pacemaker: Yes - [place] Specific Hx Diabetes: No Hx Cancer: No Hx Neurological Problems: Yes Hx Cerebrovascular Accident: Yes - 4 strokes last CVA 08/2015 (Parvez Madera M.D.) Review of Systems All Other Systems: limited (Parvez Madera M.D.) Physical Exam Vital Signs Date Time Temp Pulse Resp B/P Pulse Ox O2 Delivery O2 Flow Rate FiO2 12/05/16 18:04 92 14 138/74 97 Room Air Sp02 EP Interpretation: reviewed, normal General Appearance: no apparent distress, Chronically Ill Head: normocephalic, atraumatic Eyes: bilateral eye PERRL, bilateral eye normal inspection ENT: moist mucus membranes Neck: supple Respiratory: lungs clear, normal breath sounds, other - pacemaker Cardiovascular #1: regular rate, rhythm, edema - bilateral L>R Cardiovascular #2: 2+ radial (R) Gastrointestinal: normal inspection, normal bowel sounds, non tender, no mass, non-distended, overweight Musculoskeletal: pelvis stable, swelling - bilaterally Neurologic: other - uncooperative - fluttering eyelids. Not withdraw with pain (?voluntary) Psychiatric: other - initially unresponsive Reflexes: 1+ knee (R), 1+ knee (L) Skin: warm/dry, other - venous disease (Parvez Madera M.D.) Medical Decision Making Diagnostic Impression: Primary Impression: Altered level of consciousness Additional Impressions: TIA (transient ischemic attack) Qualified Codes: G45.9 - Transient cerebral ischemic attack, unspecified Chronic pain Qualified Codes: G89.4 - Chronic pain syndrome Traumatic hematuria Possible opiate seekig behavior Edema Qualified Codes: R60.0 - Localized edema ER Course Patient presents with altered level of consciousness. His father argument. Eyes exam with EMS he avoids hitting himself with his hands. Differential includes stroke, overdose, psychogenic, electrolyte imbalance amongst others. Patient needs emergent evaluation and treatment. Evaluated with laboratory, chest x-ray, CT of the head and urinalysis. A significant contributory element is the difficulty at his SNF. Appears to have significant psychogenic component - although need to exclude bleed, CVA. The patient's exam is improving. He states he has weakness on his left hand side. He's had 4 strokes in the past. His mentation is improving here. We are unable to perform a CT scan of his head because his weight. We're arranging for him to go to another facility is to get a CT of his head done. Improved neuro. No localized weakness, more bilat LE, but moves with 4/5 strength. The patient is complaining about left shoulder pain. He was here before he required multiple doses of Dilaudid. Dilaudid ordered. Discussed with Dr. Verduzco. Will call back. Urethral trauma with initial garcia. Coudet passed. Clear urine. Patient with marked improvement. TPA not indicated. c/o Hip pain. Accepted at [place] Dr. Verduzco. Initially patient refused transfer when he felt he was being sent to an SNF. When understood he was going to be inpatient , he agreed. Laboratory Tests Test 12/05/16 18:34 12/05/16 21:11 White Blood Count 6.4 K/UL (4.8-10.8) Red Blood Count 4.34 M/UL (4.70-6.10) L Hemoglobin 13.5 G/DL (14.2-18.0) L Hematocrit 41.1 % (42.0-52.0) L Mean Corpuscular Volume 95 FL (80-99) Mean Corpuscular Hemoglobin 31.2 PG (27.0-31.0) H Mean Corpuscular Hemoglobin Concent 32.9 G/DL (32.0-36.0) Red Cell Distribution Width 11.6 % (11.6-14.8) Platelet Count 113 K/UL (150-450) L Mean Platelet Volume 7.4 FL (6.5-10.1) Neutrophils (%) (Auto) 56.7 % (45.0-75.0) Lymphocytes (%) (Auto) 30.7 % (20.0-45.0) Monocytes (%) (Auto) 6.5 % (1.0-10.0) Eosinophils (%) (Auto) 4.6 % (0.0-3.0) H Basophils (%) (Auto) 1.4 % (0.0-2.0) Sodium Level 138 mEQ/L (135-145) Potassium Level 4.2 mEQ/L (3.4-4.9) Chloride Level 96 mEQ/L (98-107) L Carbon Dioxide Level 27 mEQ/L (20-30) Anion Gap 15 (5-15) Blood Urea Nitrogen 33 mg/dL (7-23) H Creatinine 1.4 mg/dL (0.7-1.2) H Estimate Glomerular Filtration Rate > 60 mL/min (>60) Glucose Level 107 mg/dL (74-106) H Lactic Acid Level 1.70 mmol/L (0.66-2.22) Calcium Level 9.9 mg/dL (8.6-10.2) Total Bilirubin 0.3 mg/dL (0.0-1.2) Aspartate Amino Transferase (AST) 25 U/L (5-40) Alanine Aminotransferase (ALT) 25 U/L (3-41) Alkaline Phosphatase 89 U/L (40-129) Ammonia 25 umol/L (16-60) Total Creatine Kinase 281 U/L (38-174) H Troponin I < 0.30 ng/mL (<=0.30) Total Protein 8.0 g/dL (6.6-8.7) Albumin 4.5 g/dL (3.5-5.2) Globulin 3.5 g/dL Albumin/Globulin Ratio 1.2 (1.0-2.7) Thyroid Stimulating Hormone (TSH) 1.430 uIU/mL (0.300-4.500) Salicylates Level < 1 mg/dL (10-30) L Acetaminophen Level < 10 ug/mL (10-30) L Serum Alcohol < 10 mg/dL Urine Color Pale yellow Urine Appearance Clear Urine pH 5 (4.5-8.0) Urine Specific [place] 1.010 (1.005-1.035) Urine Protein Negative (NEGATIVE) Urine Glucose (UA) Negative (NEGATIVE) Urine Ketones Negative (NEGATIVE) Urine Occult Blood 4+ (NEGATIVE) H Urine Nitrite Negative (NEGATIVE) Urine Bilirubin Negative (NEGATIVE) Urine Urobilinogen Normal MG/DL (0.0-1.0) Urine Leukocyte Esterase Negative (NEGATIVE) Urine RBC 20-30 /HPF (0 - 0) H Urine WBC 0-2 /HPF (0 - 0) Urine Squamous Epithelial Cells None /LPF (NONE/OCC) Urine Bacteria None /HPF (NONE) Urine Opiates Screen Negative (NEGATIVE) Urine Barbiturates Screen Negative (NEGATIVE) Phencyclidine (PCP) Screen Negative (NEGATIVE) Urine Amphetamines Screen Negative (NEGATIVE) Urine Benzodiazepines Screen Negative (NEGATIVE) Urine Cocaine Screen Negative (NEGATIVE) Urine Marijuana (THC) Screen Negative (NEGATIVE) (Parvez Madera M.D.) ER Course Patient signed out to me. Patient was to be transferred to [facility]. He was not able to get a CT scan initially this afternoon. Back down for CT scan. His family to do it. CT scan to show old infarct and encephalomalacia. No acute process. He is otherwise stable for transfer to [facility]. I suspect is altered mental status may be secondary to TIA versus seizure from previous multifocal infarcts. (JUDIE ALVAREZ M.D.) EKG Diagnostic Results Rate: normal Rhythm: other - paced ST Segments: no acute changes (Parvez Madera M.D.) Rhythm Strip Diag. Results EP Interpretation: yes Rhythm: no PVC's, no ectopy, other - paced (Parvez Madera M.D.) Chest X-Ray Diagnostic Results EP Interpretation: Yes Findings: no effusion, no pneumothorax, other - pacer Number of Views: 1 (Parvez Madera M.D.) CT/MRI/US Diagnostic Results CT/MRI/US Diagnostic Results : Imaging Test Ordered: CT head Impression no acute process per radiologist. (JUDIE ALVAREZ M.D.) Last Vital Signs Date Time Temp Pulse Resp B/P Pulse Ox O2 Delivery O2 Flow Rate FiO2 12/05/16 22:52 98.6 84 10 139/70 100 Room Air Status: improved (Pravez Madera M.D.) Disposition: XFER SHT-TRM HOSP - [place] Condition: Serious Parvez Madera M.D. Dec 05, 2016 18:20 JUDIE ALVAREZ M.D. Dec 06, 2016 01:41
[2016-12-05 18:25] VITALS: BP 138/74
[2016-12-05 18:54] LABS: BASOPHILS % (AUTO) 1.4 % (0.0-2.0); EOSINOPHILS % (AUTO) 4.6 % (0.0-3.0); LYMPHOCYTES % (AUTO) 30.7 % (20.0-45.0); MEAN CORPUSCULAR HEMOGLOBIN 31.2 PG (27.0-31.0); MEAN CORPUSCULAR HGB CONC 32.9 G/DL (32.0-36.0); MEAN CORPUSCULAR VOLUME 95 FL (80-99); MEAN PLATELET VOLUME 7.4 FL (6.5-10.1); MONOCYTES % (AUTO) 6.5 % (1.0-10.0); NEUTROPHILS % (AUTO) 56.7 % (45.0-75.0); PLATELET COUNT 113 K/UL (150-450); RED BLOOD COUNT 4.34 M/UL (4.70-6.10); RED CELL DISTRIBUTION WIDTH 11.6 % (11.6-14.8); WHITE BLOOD COUNT 6.4 K/UL (4.8-10.8)
[2016-12-05 19:05] LABS: TROPONIN I < 0.30 ng/mL (<=0.30)
[2016-12-05 19:10] LABS: ACETAMINOPHEN < 10 ug/mL (10-30); ALANINE AMINOTRANSFERASE 25 U/L (3-41); ALBUMIN/GLOBULIN RATIO 1.2 (1.0-2.7); ALCOHOL < 10 mg/dL; ANION GAP 15 (5-15); ASPARTATE AMINO TRANSFERASE 25 U/L (5-40); CALCIUM 9.9 mg/dL (8.6-10.2); CARBON DIOXIDE 27 mEQ/L (20-30); CHLORIDE 96 mEQ/L (98-107); CREATININE 1.4 mg/dL (0.7-1.2); GLOMERULAR FILTRATION RATE > 60 mL/min (>60); HEMOLYSIS 43; POTASSIUM 4.2 mEQ/L (3.4-4.9); SODIUM 138 mEQ/L (135-145)
[2016-12-05 19:11] LABS: AMMONIA 25 umol/L (16-60)
[2016-12-05 19:28] VITALS: BP 127/79
[2016-12-05] MEDS ORDERED: Hydromorphone 0.5mg/0.5ml inj IVP ONE (19:45)
[2016-12-05] MEDS ORDERED: HYDROmorphone 1mg/ml Carpuject IVP ONE (21:15)
[2016-12-05 21:20] VITALS: BP 131/89
[2016-12-05 21:37] LABS: APPEARANCE,URINE CLEAR; KETONES,URINE NEGATIVE (NEGATIVE); LEUKOCYTE ESTERASE ,URINE NEGATIVE (NEGATIVE); NITRITE,URINE NEGATIVE (NEGATIVE); PH,URINE 5 (4.5-8.0); PROTEIN,URINE NEGATIVE (NEGATIVE); UROBILINOGEN,URINE NORMAL MG/DL (0.0-1.0)
[2016-12-05 21:50] LABS: RBC,URINE 20-30 /HPF (0 - 0); WBC,URINE 0-2 /HPF (0 - 0)
[2016-12-05 22:52] VITALS: BP 139/70
[2016-12-06 00:10] VITALS: BP 138/72
[2016-12-06 01:05] VITALS: BP 129/72
[2016-12-06 01:25] VITALS: BP 129/72
--- NOTE | 2016-12-06 09:30 | Diagnostic Imaging Report ---
Clinical history: Shortness of breath. Technique: Portable AP chest radiograph was obtained. Comparison: 11/28/16. Findings: There is mild cardiomegaly with scattered patchy and interstitial opacities suggesting mild pulmonary edema. There is otherwise no significant interval change in the interval, allowing for differences in technique and positioning. Impression: 1. Mild cardiomegaly and mild pulmonary edema. 2. Left chest cardiac conduction device and post cardiothoracic surgical changes, stable.
--- NOTE | 2016-12-06 10:30 | Diagnostic Imaging Report ---
\H\CT Brain without Intravenous Contrast INDICATION: \N\Altered level of consciousness.\H\ COMPARISON: Head CT dated 09/28/15. TECHNIQUE: Serial axial images were obtained from the the skull base through the vertex without intravenous contrast. Coronal reformats were obtained. Dose Estimate: Total DLP \N\1386\H\ mGycm CTDIvol \N\70\H\ mGy FINDINGS: Large confluent hypodensities involving the posterior right frontal lobe, right temporoparietal and occipital lobes, left posterior temporal and parieto-occipital lobes and small hypodensities in the bilateral cerebellar hemispheres are compatible with encephalomalacia from prior injury or infarct, overall similar to the prior examination. Scattered periventricular and subcortical white matter hypodensities are nonspecific but may reflect the sequela of chronic microangiopathy. There is no evidence of acute intracranial hemorrhage. The cortical sulci, ventricles and extra-axial CSF spaces appear mildly enlarged for patient's age. There is no space occupying lesion, mass effect or midline shift. The visualized paranasal sinuses and mastoid air cells are clear. The osseous structures are unremarkable. \N\\H\IMPRESSION: 1. Stable areas of encephalomalacia from prior injury or infarct, as described. No acute intracranial hemorrhage, midline shift or mass effect. 2. Mild cerebral parenchymal volume loss. Moderate scattered white matter hypodensities are nonspecific but may reflect the sequela of chronic microangiopathy.\N\
--- NOTE | 2016-12-06 18:47 | Cardiology Report ---
APPROVED REPORT EKG Measurement Heart [id number] P54 [id number] Electronic pacemaker Sinus rhythm Intermittent ventricular paced rhythm
== END 2016-12-06 01:25 | disposition short-term general hospital (02) ==
LOC: EDBD 18:12 → EMR 19:03
DX: G45.9 Transient cerebral ischemic attack, unspecified (principal); G93.89 Other specified disorders of brain; I10 Essential (primary) hypertension; M25.512 Pain in left shoulder; M25.559 Pain in unspecified hip; T83.098A Other mechanical complication of other urinary catheter, initial encounter; R31.9 Hematuria, unspecified; Y84.6 Urinary catheterization as the cause of abnormal reaction of the patient, or of later complication, without mention of misadventure at the time of the procedure; Y92.9 Unspecified place or not applicable; Z95.1 Presence of aortocoronary bypass graft; Z95.0 Presence of cardiac pacemaker; Z91.010 Allergy to peanuts; I51.7 Cardiomegaly; J81.1 Chronic pulmonary edema
CPT/HCPCS: 36415; 70450; 71010; 80053; 80300; 81003; 82140; 82550; 82962; 83605; 84443; 84484; 85025; 93005; 96374; 96375; 99285; G0480; J1170; 80329

== ENCOUNTER 2016-12-10 21:21 | Emergency (ER) | payer MEDICARE, MEDICAID ==
[~2016-12-10] VITALS: Ht 190.5 cm; Wt 140.6 kg
[2016-12-10 21:25] VITALS: BP 113/68
--- NOTE | 2016-12-10 21:32 | Emergency Room Report ---
History of Present Illness General Chief Complaint: Male Urogenital Problems Source: Patient Present Illness HPI This is a 66-year-old male whose BMI is 38.7, and who has a history of TIA/CVA and hypertension. He was on Xarelto. He presents with hematuria for last couple days. Denies any fever chills denies any nausea vomiting. He was here about 2 weeks ago and had dramatic hematuria. He was sent to [facility] where had a negative stress test. Negative CT head here. Denies any other complaint. No pain. Allergies: Coded Allergies: PEANUT (Verified Allergy, Unknown, rash, 04/29/14) Uncoded Allergies: PEANUT BUTTER (Allergy, Unknown, 11/28/16) peanut butter (Allergy, Unknown, Rash, 04/29/14) Patient History Past Medical History: see triage record, old chart reviewed, HTN, CAD, CVA/TIA Past Surgical History: other Pertinent Family History: none Social History: Denies: smoking Immunizations: other Reviewed Nursing Documentation: PMH: Agreed, PSxH: Agreed Nursing Documentation-PMH Hx Cardiac Problems: Yes - Triple bypass 2010 Hx Hypertension: Yes Hx Pacemaker: Yes - [place] [employer] Specific Hx Diabetes: No Hx Cancer: No Hx Neurological Problems: Yes Hx Cerebrovascular Accident: Yes - 4 strokes last CVA 08/2015 Review of Systems Eye: Denies: blurred vision, eye pain ENT: Denies: ear pain, nose congestion, throat swelling Respiratory: Denies: cough, shortness of breath Cardiovascular: Denies: chest pain, palpitations Gastrointestinal: Denies: abdominal pain, diarrhea, nausea, vomiting Genitourinary: Reports: hematuria Musculoskeletal: Denies: back pain, joint pain Skin: Denies: rash Neurological: Denies: headache, numbness Endocrine: Denies: increased thirst, increased urine Hematologic/Lymphatic: Denies: easy bruising All Other Systems: negative except mentioned in HPI Physical Exam Vital Signs Date Time Temp Pulse Resp B/P Pulse Ox O2 Delivery O2 Flow Rate FiO2 12/10/16 21:20 97.5 72 18 113/68 97 Room Air vitals normal Sp02 EP Interpretation: reviewed, normal General Appearance: well appearing, no apparent distress, alert, obese Head: normocephalic, atraumatic Eyes: bilateral eye EOMI, bilateral eye PERRL ENT: hearing grossly normal, normal pharynx Neck: full range of motion, supple, no meningismus Respiratory: chest non-tender, lungs clear, normal breath sounds Cardiovascular #1: regular rate, rhythm, no murmur Gastrointestinal: normal bowel sounds, non tender, no mass, no organomegaly, no bruit, non-distended Genitourinary: other - Patient is uncircumcised. There is blood oozing from the meatus. Musculoskeletal: back normal, normal range of motion Psychiatric: mood/affect normal Skin: warm/dry Procedures Additional Procedure Procedure Narrative Procedure: Szymanski insertion Indication: Gross hematuria Description: Patient has hematuria. Nursing staff unable to place a Szymanski. Under sterile condition I placed a 16 [place] coud without any difficulty. Patient urine has appearance of Pyridium. He has small amount of clots. patient tolerated procedure without a problem. Medical Decision Making Diagnostic Impression: Primary Impression: Gross hematuria Additional Impressions: UTI (urinary tract infection) Qualified Codes: N30.00 - Acute cystitis without hematuria Obesity (BMI 30-39.9) ER Course Patient able to urinate. Urine color looked like he has been taking Pyridium. He confirmed this. There is small amount of clots in the urinal. patient has gross hematuria. Is no blockage. This may be secondary to prostatitis, neoplastic process, or trauma. We'll leave the Szymanski in for now in case it is traumatic hematuria of the urethra. He will need urology consult. I will go ahead and cover him with antibiotics since he has several Szymanski is in the last week. Lab Results Impression labs unremarkable Last Vital Signs Date Time Temp Pulse Resp B/P Pulse Ox O2 Delivery O2 Flow Rate FiO2 12/10/16 21:25 97.5 89 18 113/68 97 Room Air Status: improved Disposition: XFER SNF Condition: Stable Additional Instructions: Keep catheter in for 4-5 days. Followup with your Dr. to 3 days. Return if symptom worsen or having fever. You would need urology consult if not better. JUDIE ALVAREZ M.D. Dec 10, 2016 21:32
[2016-12-10] MEDS ORDERED: Norco 5mg/325mg tab ORAL ONE (22:00)
[2016-12-10 22:13] LABS: BASOPHILS % (AUTO) 1.2 % (0.0-2.0); EOSINOPHILS % (AUTO) 6.1 % (0.0-3.0); LYMPHOCYTES % (AUTO) 32.7 % (20.0-45.0); MEAN CORPUSCULAR HEMOGLOBIN 31.9 PG (27.0-31.0); MEAN CORPUSCULAR HGB CONC 33.3 G/DL (32.0-36.0); MEAN CORPUSCULAR VOLUME 96 FL (80-99); MEAN PLATELET VOLUME 7.3 FL (6.5-10.1); MONOCYTES % (AUTO) 7.6 % (1.0-10.0); NEUTROPHILS % (AUTO) 52.5 % (45.0-75.0); PLATELET COUNT 136 K/UL (150-450); RED BLOOD COUNT 3.84 M/UL (4.70-6.10); RED CELL DISTRIBUTION WIDTH 12.4 % (11.6-14.8); WHITE BLOOD COUNT 7.5 K/UL (4.8-10.8)
[2016-12-10 22:20] LABS: PROTHROMBIN TIME 10.4 SEC (9.30-11.50)
[2016-12-10 22:23] LABS: ANION GAP 14 (5-15); CALCIUM 9.9 mg/dL (8.6-10.2); CARBON DIOXIDE 28 mEQ/L (20-30); CHLORIDE 99 mEQ/L (98-107); CREATININE 1.4 mg/dL (0.7-1.2); GLOMERULAR FILTRATION RATE > 60 mL/min (>60); HEMOLYSIS 4; POTASSIUM 4.3 mEQ/L (3.4-4.9); SODIUM 141 mEQ/L (135-145)
[2016-12-10 22:58] LABS: APPEARANCE,URINE CLEAR; KETONES,URINE NEGATIVE (NEGATIVE); LEUKOCYTE ESTERASE ,URINE NEGATIVE (NEGATIVE); NITRITE,URINE POSITIVE (NEGATIVE); PH,URINE 5 (4.5-8.0); PROTEIN,URINE 2+ (NEGATIVE); UROBILINOGEN,URINE 4 MG/DL (0.0-1.0)
[2016-12-10] MEDS ORDERED: KEFLEX500 MG ORAL (23:12)
[2016-12-10] MEDS ORDERED: cefTRIAXone 1 GM in NS 55 ML IVPB ONE (23:15)
[2016-12-10 23:22] VITALS: BP 135/77
[2016-12-10 23:50] LABS: AMORPHOUS SEDIMENT,UR MODERATE /LPF; BACTERIA,URINE FEW /HPF; ICTOTEST POSITIVE; RBC,URINE 60-80 /HPF (0 - 0); WBC,URINE 0 /HPF (0 - 0)
[2016-12-11 00:33] VITALS: BP 118/67
[2016-12-11 00:37] VITALS: BP 118/67
== END 2016-12-11 00:38 ==
LOC: EDBD 21:21 → EMR 21:35
DX: R31.9 Hematuria, unspecified (principal); N39.0 Urinary tract infection, site not specified; I10 Essential (primary) hypertension; Z86.73 Personal history of transient ischemic attack (TIA), and cerebral infarction without residual deficits; Z79.01 Long term (current) use of anticoagulants; Z91.010 Allergy to peanuts; Z95.0 Presence of cardiac pacemaker; E66.9 Obesity, unspecified; Z68.38 Body mass index [BMI] 38.0-38.9, adult
CPT/HCPCS: 36415; 51702; 80048; 81003; 85025; 85610; 85730; 96360; 99284; J0696